=== PATIENT | male | born 1955 | race Caucasian/White ===

== ENCOUNTER 2023-01-06 15:40 | Inpatient (IN) | payer MEDICARE, MEDICAID, SELFPAY ==
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
[2023-01-06 15:56] VITALS: BP 116/72; PULSE 64; RESP 16; TEMP 36.4; O2SAT 98; BMI 38.7
[2023-01-06 16:00] VITALS: BP 118/62; PULSE 61; RESP 16; TEMP 36.6; O2SAT 98
[2023-01-06] MEDS: Furosemide 20 MG Tablet PO (18:11)
[2023-01-06] MEDS: Atorvastatin Calcium 80 MG Tablet PO (21:49)
[2023-01-06] MEDS: tiZANidine HCl 2 MG Tablet PO (21:49)
[2023-01-06] MEDS: traZODone 50 MG Tablet PO (21:49)
[2023-01-07] MEDS: Aspirin E.C. 81 MG Tablet PO (04:56)
[2023-01-07] MEDS: Furosemide 20 MG Tablet PO ×2 (04:56→17:20)
[2023-01-07] MEDS: Levothyroxine 100 MCG Tablet PO (04:56)
[2023-01-07] MEDS: Empagliflozin 25 MG Tablet PO (04:56)
[2023-01-07] MEDS: Oxybutynin 5 MG Tablet 10 MG PO (04:56)
[2023-01-07] MEDS: tiZANidine HCl 2 MG Tablet PO ×3 (04:57→21:22)
[2023-01-07 07:44] LABS: Absolute Lymphocyte Count 0.85 X10^3/uL (0.83-4.51); Absolute Neutrophil Count 2.7 X10^3/uL (2.0-7.7); Basophil# 0.04 X10^3/uL; Basophil% 0.9 % (0-1); Eosinophil# 0.61 X10^3/uL; Eosinophils% 13.2 % (0-5); Hematocrit 42.9 % (40-54); Hemoglobin 13.8 g/dL (13.0-16.5); Lymphocyte # 0.85 X10^3/ul (0.83-4.51); Lymphocyte % 18.4 % (19-41); Mean Corp Hgb Conc 32.2 g/dL (32-36); Mean Corpuscular Hgb 32.9 pg (27.0-32.0); Mean Corpuscular Volume 102.4 fL (80-94); Mean Platelet Vol. 9.8 fl (6.2-12.0); Monocyte# 0.35 X10^3/uL; Monocyte% 7.6 % (0-10); NRBC Flagged by Analyzer 0 % (0-5); Neutrophil # 2.72 X10^3/uL (2.7-7.7); Platelet Count 143 K/mm3 (150-450); RBC Distribution Width CV 14.2 % (11.6-14.6); RBC Distribution Width SD 53.9 fl (35.1-43.9); Red Blood Count 4.19 M/mm3 (4.6-6.2); White Blood Count 4.6 K/mm3 (4.4-11.0)
[2023-01-07 08:06] LABS: Anion Gap 4 (5-15); BUN 48 mg/dL (7-18); BUN/Creat Ratio 25.9 RATIO (10-20); Calcium,Total 8.8 mg/dL (8.5-10.1); Chloride 102 mmol/L (98-107); Creatinine, Serum 1.85 mg/dL (0.70-1.30); EST Glomerular Filtration Rate 39 mL/min (>60); Est Glom Filt Rate - Afr Amer 47 mL/min (>60); Estimated Creatinine Clearance 39.46 ml/min; Glucose 148 mg/dL (74-106); Potassium 3.7 mmol/L (3.5-5.1); Sodium Level 136 mmol/L (136-145)
[2023-01-07] MEDS: Tuberculin,Purif.prot.deriv. 50 TU/ML Vial 0.1 ML ID (08:58)
[2023-01-07 13:54] VITALS: BP 113/87; PULSE 72; RESP 16; TEMP 36.2; O2SAT 96
[2023-01-07] MEDS: Atorvastatin Calcium 80 MG Tablet PO (21:22)
[2023-01-07] MEDS: traZODone 50 MG Tablet PO (21:22)
[2023-01-08] MEDS: Furosemide 20 MG Tablet PO ×2 (05:09→17:28)
[2023-01-08] MEDS: Empagliflozin 25 MG Tablet PO (05:09)
[2023-01-08] MEDS: tiZANidine HCl 2 MG Tablet PO ×3 (05:09→21:31)
[2023-01-08] MEDS: Oxybutynin 5 MG Tablet 10 MG PO (05:09)
[2023-01-08] MEDS: Levothyroxine 100 MCG Tablet PO (05:09)
[2023-01-08 06:36] LABS: Bedside Glucose 149 mg/dL (74-106)
[2023-01-08] MEDS: Aspirin E.C. 81 MG Tablet PO (08:27)
[2023-01-08 10:00] VITALS: PULSE 70; RESP 14; O2SAT 96
--- NOTE | 2023-01-08 11:36 | NURSING ---
Patient noted to have bilateral lower leg seeping, w/ red striations, warm to touch/noted to have minor sensitivity to bilateral heels. ABD pads placed bilaterally, kerlix placed bilaterally and EMILY wraps applied. Heels floated. No wounds to heels noted.
[2023-01-08 13:27] VITALS: BP 112/57; PULSE 69; RESP 16; TEMP 36.3; O2SAT 94
--- NOTE | 2023-01-08 18:19 | PCA ---
FOOD SANITARIAN offered HS care and to help patient get cleaned up for bed. Patient stated that first shift already took care of everything this morning. Im good for tonight Per patient they would rather get cleaned in the mornings
[2023-01-08] MEDS: traZODone 50 MG Tablet PO (21:31)
[2023-01-08] MEDS: Atorvastatin Calcium 80 MG Tablet PO (21:31)
[2023-01-09] MEDS: Levothyroxine 100 MCG Tablet PO (05:55)
[2023-01-09] MEDS: Empagliflozin 25 MG Tablet PO (05:55)
[2023-01-09] MEDS: Furosemide 20 MG Tablet PO ×2 (05:55→17:35)
[2023-01-09] MEDS: tiZANidine HCl 2 MG Tablet PO ×3 (05:55→20:35)
[2023-01-09] MEDS: Oxybutynin 5 MG Tablet 10 MG PO (05:55)
[2023-01-09 06:31] LABS: Bedside Glucose 148 mg/dL (74-106)
[2023-01-09] MEDS: Aspirin E.C. 81 MG Tablet PO (08:01)
--- NOTE | 2023-01-09 11:23 | NURSING ---
Offered Covid booster and provided education about vaccine. Patient refuses this time.
[2023-01-09 13:20] VITALS: BP 102/52; PULSE 73; RESP 16; TEMP 36.3; O2SAT 94
--- NOTE | 2023-01-09 14:51 | NURSING ---
Public Relations Sales Marketing Note; Activity Asset: Margarita Hayes is independent in his choice of daily activities. He prefers to be called Alberto. Alberto has a smartphone and tablet he will plat games on or cards. Alberto stated he is fine with watching tv and playing games on his tablet and is not interested in group activities at this time, will continue to do social visit and encourage small group activities for social well-being.
--- NOTE | 2023-01-09 15:19 | CASEMGMT ---
Social Work Met with patient to complete initial assessment. Introduced self and role. Verified contacts. Discussed code status and MOLST form. Pt confirms full code. MOLST placed in folder. Educated to [facility] insurance with NRD 01/10 and continued stay is not guaranteed with each review. Pt's goal is to return home alone with resuming caregivers 7 days/wk, 3 hrs for AM care and 2 hrs for PM care. Pt states the LIFE INSURANCE SALES is through [employer], and unknown of CM name. LILLIANA spoke with [facility] on Aging and pt is not in the system. SW left message [facility] on Aging for CM. SW to continue to follow. Tiffany Calderon, SANDWICH HAND IT SYSTEMS MANAGER
--- NOTE | 2023-01-09 15:44 | NURSING ---
Patient updated about Covid positive staff. Daughter updated over phone.
--- NOTE | 2023-01-09 15:57 | PHA.CONS_ITS ---
TCU RX Drug Regimen Review Subjective: TCU Admission. 67 YOM admitted to an outside hospital with anasarca, urinary tract infection, pneumonia, complicated by encephalopathy, acute kidney injury, elevated liver function test, hypokalemia. Admitted to TCU with debility for strengthening and rehabilitation. Objective: Allergies Iodinated Contrast Media [iodine contrast] Adverse Reaction (Verified 01/06/23 16:40) Rash Current Medications Generic Name Dose Route Start Last Admin Trade Name Freq PRN Reason Stop Dose Admin Acetaminophen 1,000 mg 01/06/23 16:41 Acetaminophen 500 Mg Tablet PO Q6H PRN PRN Pain Score 1-10 Aspirin 81 mg 01/08/23 08:00 01/09/23 08:01 Aspirin E.C. 81 Mg Tablet PO 81 mg DAILYCM BG Administration Atorvastatin Calcium 80 mg 01/06/23 22:00 01/08/23 21:31 Atorvastatin Calcium 80 Mg Tablet PO 80 mg QHS BG Administration Empagliflozin 25 mg 01/07/23 06:00 01/09/23 05:55 Empagliflozin 25 Mg Tablet PO 25 mg DAILY BG Administration Furosemide 20 mg 01/06/23 18:00 01/09/23 05:55 Furosemide 20 Mg Tablet PO 20 mg BID BG Administration Lactobacillus Acidophilus 1 tablet 01/07/23 06:00 01/09/23 05:55 Lactobacillus Acidophilus PO 1 tablet DAILY BG Administration Levothyroxine Sodium 100 mcg 01/07/23 06:00 01/09/23 05:55 Levothyroxine 100 Mcg Tablet PO 100 mcg DAILY BG Administration Loratadine 10 mg 01/06/23 16:15 Loratadine 10 Mg Tablet PO DAILY PRN PRN Allergies Magnesium Hydroxide 30 ml 01/06/23 16:41 Magnesium Hydroxide 30 Ml Udc PO X1 PRN Constipation Nystatin 1 applic 01/06/23 16:25 Nystatin Ointment TOPICAL BID PRN PRN RASH/TOPICAL IRRITATION Protocol Oxybutynin Chloride 10 mg 01/07/23 06:00 01/09/23 05:55 Oxybutynin 5 Mg Tablet PO 10 mg DAILY BG Administration Senna/Docusate Sodium 1 tablet 01/06/23 16:41 Senna/Docusate Sodium 1 Tablet PO BID PRN PRN Constipation Tizanidine HCl 2 mg 01/06/23 22:00 01/09/23 13:35 Tizanidine Hcl 2 Mg Tablet PO 2 mg Q8 BG Administration Trazodone HCl 50 mg 01/06/23 22:00 01/08/23 21:31 Trazodone 50 Mg Tablet PO 50 mg QHS BG Administration Tuberculin PPD 0.1 ml 01/14/23 10:00 Tuberculin,Purif.Prot.Deriv. 50 Tu/Ml Vial ID 01/14/23 10:01 X1 ONE Problem List (Last Updated 01/06/23 @ 16:[address] Elmer Galvan MD) Suspected deep tissue injury of unknown depth of lower back (Acute) Stage III pressure ulcer of left heel (Acute) Hyperlipidemia (Acute) Coronary artery disease (Acute) Diabetes mellitus (Acute) History of suprapubic catheter (Acute) Neurogenic bladder (Acute) C3 spinal cord injury (Acute) Pneumonia (Acute) Complicated urinary tract infection (Acute) Elevated liver function tests (Acute) Acute kidney injury (Acute) Acute encephalopathy (Acute) Anasarca (Acute) Debility (Acute) Vital Signs Temp Pulse Resp BP Pulse Ox O2 Del Method 97.4 F L 73 16 102/52 L 94 Room Air 01/09/23 13:20 01/09/23 13:20 01/09/23 13:20 01/09/23 13:20 01/09/23 13:20 01/08/23 13:27 Oxygen Delivery Method Room Air Weight: 122.47 kg Body Mass Index (BMI) 38.7 Sodium 136 mmol/L (136-145) 01/07/23 07:05 Potassium 3.7 mmol/L (3.5-5.1) 01/07/23 07:05 Chloride 102 mmol/L (98-107) 01/07/23 07:05 Carbon Dioxide 30.0 mmol/L (21.0-32.0) 01/07/23 07:05 Anion Gap 4 (5-15) L 01/07/23 07:05 BUN 48 mg/dL (7-18) H 01/07/23 07:05 Creatinine 1.85 mg/dL (0.70-1.30) H 01/07/23 07:05 Est GFR (MDRD) Af Amer 47 mL/min (>60) L 01/07/23 07:05 Est GFR (MDRD) Non-Af 39 mL/min (>60) L 01/07/23 07:05 BUN/Creatinine Ratio 25.9 RATIO (10-20) H 01/07/23 07:05 Glucose 148 mg/dL (74-106) H 01/07/23 07:05 Assessment/Plan: 1. Pain: acetaminophen 1000mg PO Q8H PRN pain 1-10. Resident has not had any doses. Please continue to monitor for increased pain and PRN usage. 2. Bowel: senna/docusate 1T PO BID PRN constipation and MOM 30mL PO x1 PRN constipation. Resident has not had any PRN doses and does not have a documented bowel movement. Please continue to monitor for constipation and PRN usage. 3. CAD: aspirin 81mg PO daily. Please continue to monitor for S/S of bleeding and hemoglobin (last 13.8g/dL). 4. Hyperlipidemia: atorvastatin 80mg PO QHS. Please continue to monitor for muscle pain. Resident had elevated LFTs during hospital admission but I can not see lab work from previous admission. Please continue to monitor LFTs to make sure they have improved since resident is on atorvastatin. Please consider ordering a lipid panel as this resident does not have one in the chart. Thanks. 5. Diabetes Mellitus II: empagliflozin 25mg PO daily. Please consider ordering a hemoglobin A1c if clinically appropriate. No A1c in the chart. Thanks. Please continue to monitor glucose (last 148mg/dL), renal function, S/S of UTI (had a UTI during hospital admission) and increased urination. 6. Anasarca: furosemide 20mg PO BID. Please continue to monitor for swelling, renal function and potassium (last 3.7mmol/L). 7. Hypothyroidism: levothyroxine 100mcg PO daily. Per physician note, dose was supposed to be increased to 112 mcg due to TSH of 6.29, but order is in as 100mcg. Please consider increasing dose to 112 mcg if clinically appropriate. Thanks. Please continue to monitor for S/S of hypo/hyperthyroidism. 8. Allergic rhinitis: loratadine 10mg PO daily PRN allergies. Resident has not had a dose. Please continue to monitor for PRN usage and allergies. 9. Muscle spasm: tizanidine 2mg PO Q8. Please continue to monitor for muscle spasms, dry mouth, constipation and drowsiness. 10. GI prophylaxis: lactobacillus acidophilus 1T PO daily. Please continue to monitor. 11. Neurogenic bladder: oxybutynin 10mg PO daily. Please continue to monitor for delirium/dementia (BEERs medication) and anticholinergic side effects. Assessment/Plan for indications treated with psychotropic medications: 1. Insomnia: trazodone 50mg PO QHS. Please consider GDR by 06/2023 if clinically appropriate. Please continue to monitor for excessive drowsiness. Medical chart and medication regimen reviewed. The following medication irregularities or issues were identified: *1. Atorvastatin 80mg PO QHS. Please continue to monitor for muscle pain. Resident had elevated LFTs during hospital admission but I can not see lab work from previous admission. Please continue to monitor LFTs to make sure they have improved since resident is on atorvastatin. Please consider ordering a lipid pa mayuri as this resident does not have one in the chart. Thanks. *2. Empagliflozin 25mg PO daily. Please consider ordering a hemoglobin A1c if clinically appropriate. No A1c in the chart. Thanks. *3. Levothyroxine 100mcg PO daily. Per physician note, dose was supposed to be increased to 112 mcg due to TSH of 6.29, but order is in as 100mcg. Please consider increasing dose to 112 mcg if clinically appropriate. Thanks. *4. Per physician H&P note, resident is supposed to be on cephalexin [facility] for UTI suppression. Please consider adding if clinically appropriate. Thanks. Date of Note:: 01/09/23
[2023-01-09] MEDS: traZODone 50 MG Tablet PO (20:35)
[2023-01-09] MEDS: Atorvastatin Calcium 80 MG Tablet PO (20:35)
[2023-01-10 06:36] LABS: Bedside Glucose 136 mg/dL (74-106)
[2023-01-10] MEDS: Loratadine 10 MG Tablet PO (06:49)
[2023-01-10] MEDS: Oxybutynin 5 MG Tablet 10 MG PO (06:49)
[2023-01-10] MEDS: tiZANidine HCl 2 MG Tablet PO ×3 (06:50→20:19)
[2023-01-10] MEDS: Levothyroxine 100 MCG Tablet PO (06:50)
[2023-01-10] MEDS: Furosemide 20 MG Tablet PO ×2 (06:50→17:20)
[2023-01-10] MEDS: Empagliflozin 25 MG Tablet PO (06:50)
[2023-01-10] MEDS: Aspirin E.C. 81 MG Tablet PO (08:49)
[2023-01-10 10:00] VITALS: PULSE 78; RESP 14; O2SAT 97
[2023-01-10 14:33] VITALS: BP 110/62; PULSE 71; RESP 16; TEMP 36.3; O2SAT 93
[2023-01-10] MEDS: Hydrocortisone 2.5% Crm 1 APPLIC TOPICAL (14:56)
[2023-01-10] MEDS: hydrOXYzine PAM 25 MG Capsule 50 MG PO ×2 (15:00→20:18)
[2023-01-10 16:00] VITALS: BMI 36.9
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
[2023-01-10] MEDS: Glycerin/Hypromellose/PEG400 15 ml Bottle 2 DRP EACH EYE (20:17)
[2023-01-10] MEDS: traZODone 50 MG Tablet PO (20:17)
[2023-01-10] MEDS: Atorvastatin Calcium 80 MG Tablet PO (20:19)
[2023-01-11] MEDS: Oxybutynin 5 MG Tablet 10 MG PO (06:09)
[2023-01-11] MEDS: Levothyroxine 100 MCG Tablet PO (06:10)
[2023-01-11] MEDS: Empagliflozin 25 MG Tablet PO (06:10)
[2023-01-11] MEDS: Furosemide 20 MG Tablet PO ×2 (06:10→17:18)
[2023-01-11] MEDS: tiZANidine HCl 2 MG Tablet PO ×3 (06:10→20:32)
[2023-01-11 06:31] LABS: Bedside Glucose 145 mg/dL (74-106)
[2023-01-11] MEDS: Aspirin E.C. 81 MG Tablet PO (08:00)
--- NOTE | 2023-01-11 09:31 | CASEMGMT ---
Addendum entered by Tiffany Calderon 01/11/23 09:56: SW left message with Shena, who identified herself as MECHANICAL FIELD ENGINEER, requesting a return phone call. Original Note: Social Work IDT met with patient and dtr for care plan meeting. Discussed patient's progress in PT/OT/SN. Educated to [employer] insurance with NRD 01/19 with [facility] 01/22. IDT is recommending 08/05 care at this time. Pt receives AM and PM care at home but is alone during the day and during the night. SW inquired about alt. DC plan and [employer] CM. SW has contacted [facility] on Aging and [facility] on Aging, and pt is not found at any of those agencies. Dtr provided name and number of CM (Shena Moss - [phone]). SW to contact. Pt to think about SNF or home in pt does not return to baseline by DC date. SW offered assistance with DC planning. Will continue to follow. SPENCER Bergeron MECHANICAL FIELD ENGINEER
--- NOTE | 2023-01-11 09:48 | CASEMGMT ---
Social Work BIMS () and PHQ-9 (04/11) completed for MDS assessment. Pt explained positive responses are due to change in medical condition. Tiffany Calderon, ARCHITECTURE MANAGER GLASS BLOWING LATHE OPERATOR
[2023-01-11] MEDS: Magnesium Hydroxide 30 ML UDC PO (10:46)
[2023-01-11 13:39] VITALS: BP 119/59; PULSE 67; RESP 16; TEMP 36.2; O2SAT 94
--- NOTE | 2023-01-11 15:29 | WOUNDNOTE ---
skin photo: right lower leg/foot
--- NOTE | 2023-01-11 15:30 | WOUNDNOTE ---
skin photo: left lower leg/foot
--- NOTE | 2023-01-11 15:31 | WOUNDNOTE ---
was asked to see patient for redness to legs/feet. removed EMILY wraps and dressings. no drainage noted. there are no open areas. some mild redness with some irritation noted. moderately dry skin. washed legs and feet with soap and water. pat dry. applied aloe vesta. will leave FOOD PREP WORKER at this time.
[2023-01-11] MEDS: Senna/Docusate Sodium 1 Tablet PO (18:27)
[2023-01-11 20:30] VITALS: O2SAT 95
[2023-01-11] MEDS: Atorvastatin Calcium 80 MG Tablet PO (20:32)
[2023-01-11] MEDS: traZODone 50 MG Tablet PO (20:33)
[2023-01-11] MEDS: hydrOXYzine PAM 25 MG Capsule 50 MG PO (20:34)
[2023-01-11] MEDS: Hydrocortisone 2.5% Crm 1 APPLIC TOPICAL (20:35)
[2023-01-12 04:54] VITALS: BP 130/66; PULSE 70; RESP 17; O2SAT 96
[2023-01-12] MEDS: Furosemide 20 MG Tablet PO ×2 (04:56→17:53)
[2023-01-12] MEDS: Oxybutynin 5 MG Tablet 10 MG PO (04:56)
[2023-01-12] MEDS: tiZANidine HCl 2 MG Tablet PO ×3 (04:56→20:10)
[2023-01-12] MEDS: Senna/Docusate Sodium 1 Tablet PO ×2 (04:56→17:53)
[2023-01-12] MEDS: Levothyroxine 100 MCG Tablet PO (04:56)
[2023-01-12] MEDS: Polyethylene Glycol 3350 17 GM PACKET PO (04:57)
[2023-01-12 06:26] LABS: Bedside Glucose 141 mg/dL (74-106)
[2023-01-12] MEDS: Empagliflozin 25 MG Tablet PO (06:27)
[2023-01-12] MEDS: Aspirin E.C. 81 MG Tablet PO (07:59)
[2023-01-12] MEDS: Hydrocortisone 2.5% Crm 1 APPLIC TOPICAL (08:00)
--- NOTE | 2023-01-12 12:23 | CASEMGMT ---
Social Work Completed advanced directives with pt. Pt named Ashley magallanes, as HCPOA. Original and copy provided to pt. Copies placed in chart. Tiffany Calderon, RIGHT OF WAY MANAGER LINOLEUM FLOOR INSTALLER
--- NOTE | 2023-01-12 12:38 | MDS.RN ---
Pain interview for STEPHANIE 01/13/23 completed.
[2023-01-12 13:26] VITALS: BP 111/53; PULSE 72; RESP 16; TEMP 36.2; O2SAT 96
[2023-01-12] MEDS: traZODone 50 MG Tablet PO (20:10)
[2023-01-12] MEDS: Atorvastatin Calcium 80 MG Tablet PO (20:10)
[2023-01-12 20:15] VITALS: PULSE 73; RESP 18; O2SAT 96
[2023-01-13] MEDS: Polyethylene Glycol 3350 17 GM PACKET PO (06:03)
[2023-01-13] MEDS: tiZANidine HCl 2 MG Tablet PO ×3 (06:04→19:59)
[2023-01-13] MEDS: Oxybutynin 5 MG Tablet 10 MG PO (06:04)
[2023-01-13] MEDS: Furosemide 20 MG Tablet PO ×2 (06:04→17:43)
[2023-01-13] MEDS: Senna/Docusate Sodium 1 Tablet PO ×2 (06:04→17:44)
[2023-01-13] MEDS: Empagliflozin 25 MG Tablet PO (06:04)
[2023-01-13] MEDS: Levothyroxine 100 MCG Tablet PO (06:04)
[2023-01-13 06:16] LABS: Bedside Glucose 144 mg/dL (74-106)
[2023-01-13] MEDS: Aspirin E.C. 81 MG Tablet PO (07:54)
--- NOTE | 2023-01-13 10:19 | NURSING ---
Aircraft Engine Mechanic Overhaul Note; MDS Complete
[2023-01-13 14:29] VITALS: BP 129/69; PULSE 71; RESP 18; TEMP 36.3; O2SAT 94
[2023-01-13] MEDS: traZODone 50 MG Tablet PO (19:59)
[2023-01-13] MEDS: Atorvastatin Calcium 80 MG Tablet PO (19:59)
[2023-01-13 20:00] VITALS: PULSE 75; RESP 16; O2SAT 93
[2023-01-14] MEDS: Polyethylene Glycol 3350 17 GM PACKET PO (04:49)
[2023-01-14] MEDS: Oxybutynin 5 MG Tablet 10 MG PO (04:50)
[2023-01-14] MEDS: Senna/Docusate Sodium 1 Tablet PO ×2 (04:50→17:30)
[2023-01-14] MEDS: tiZANidine HCl 2 MG Tablet PO ×3 (04:50→21:55)
[2023-01-14] MEDS: Levothyroxine 100 MCG Tablet PO (04:50)
[2023-01-14] MEDS: Furosemide 20 MG Tablet PO ×2 (04:51→17:30)
[2023-01-14] MEDS: Empagliflozin 25 MG Tablet PO (04:51)
[2023-01-14 06:20] LABS: Bedside Glucose 164 mg/dL (74-106)
[2023-01-14 07:18] LABS: Absolute Lymphocyte Count 1.09 X10^3/uL (0.83-4.51); Absolute Neutrophil Count 2.6 X10^3/uL (2.0-7.7); Basophil# 0.03 X10^3/uL; Basophil% 0.7 % (0-1); Eosinophils% 10.8 % (0-5); Hematocrit 41.6 % (40-54); Hemoglobin 13.8 g/dL (13.0-16.5); Lymphocyte # 1.09 X10^3/ul (0.83-4.51); Lymphocyte % 23.6 % (19-41); Mean Corp Hgb Conc 33.2 g/dL (32-36); Mean Corpuscular Hgb 33.6 pg (27.0-32.0); Mean Corpuscular Volume 101.2 fL (80-94); Mean Platelet Vol. 9.7 fl (6.2-12.0); Monocyte# 0.39 X10^3/uL; Monocyte% 8.5 % (0-10); NRBC Flagged by Analyzer 0 % (0-5); Neutrophil # 2.56 X10^3/uL (2.7-7.7); Neutrophil % 55.5 % (47-70); Platelet Count 124 K/mm3 (150-450); RBC Distribution Width SD 51.5 fl (35.1-43.9); Red Blood Count 4.11 M/mm3 (4.6-6.2); White Blood Count 4.6 K/mm3 (4.4-11.0)
[2023-01-14 07:43] LABS: Anion Gap 5 (5-15); BUN 47 mg/dL (7-18); BUN/Creat Ratio 26.4 RATIO (10-20); Calcium,Total 8.5 mg/dL (8.5-10.1); Chloride 107 mmol/L (98-107); Creatinine, Serum 1.78 mg/dL (0.70-1.30); EST Glomerular Filtration Rate 41 mL/min (>60); Est Glom Filt Rate - Afr Amer 49 mL/min (>60); Estimated Creatinine Clearance 41.01 ml/min; Glucose 164 mg/dL (74-106); Sodium Level 138 mmol/L (136-145)
[2023-01-14] MEDS: Aspirin E.C. 81 MG Tablet PO (08:48)
[2023-01-14] MEDS: Tuberculin,Purif.prot.deriv. 50 TU/ML Vial 0.1 ML ID (09:27)
[2023-01-14] MEDS: Hydrocortisone 2.5% Crm 1 APPLIC TOPICAL (09:43)
[2023-01-14 10:00] VITALS: PULSE 70; O2SAT 90
[2023-01-14 14:37] VITALS: BP 109/56; PULSE 64; RESP 18; TEMP 36.6; O2SAT 94
[2023-01-14] MEDS: traZODone 50 MG Tablet PO (21:55)
[2023-01-14] MEDS: Atorvastatin Calcium 80 MG Tablet PO (21:55)
[2023-01-15] MEDS: Furosemide 20 MG Tablet PO ×2 (05:44→17:02)
[2023-01-15] MEDS: Senna/Docusate Sodium 1 Tablet PO ×2 (05:45→17:02)
[2023-01-15] MEDS: Levothyroxine 100 MCG Tablet PO (05:45)
[2023-01-15] MEDS: tiZANidine HCl 2 MG Tablet PO ×3 (05:45→21:38)
[2023-01-15] MEDS: Polyethylene Glycol 3350 17 GM PACKET PO (05:45)
[2023-01-15 05:56] VITALS: BP 110/56; PULSE 61; RESP 16
[2023-01-15 06:20] LABS: Bedside Glucose 133 mg/dL (74-106)
[2023-01-15] MEDS: Aspirin E.C. 81 MG Tablet PO (07:37)
[2023-01-15] MEDS: Empagliflozin 25 MG Tablet PO (07:38)
[2023-01-15] MEDS: Oxybutynin 5 MG Tablet 10 MG PO (07:38)
--- NOTE | 2023-01-15 10:51 | NURSING ---
MEPILEX CHANGED TO PT BUTT. PT OWN ATTENDS WAS DIRTY[NOT STOOL] AND STRONG SMELL. ASKED PT WHEN HE LAST CHANGED THEM,PT STATED A FEW DAYS AGO. STATED AND EDUCATED PT THAT HE NEEDS TO CHANGE HIS ATTENDS EVERY DAY DIRTY OR NOT SO HE DOES NOT GET ANY INFECTIONS OR OTHER PROBLEMS FOR NOT BEING CLEAN. PT STATED HE UNDER STOOD. PT BOTTOM CLEANED AND NEW ATTENDS APPLIED. RN AWARE
[2023-01-15 15:25] VITALS: BP 129/55; PULSE 62; RESP 16; TEMP 36.3; O2SAT 96
[2023-01-15 19:40] VITALS: PULSE 68; RESP 16; O2SAT 93
[2023-01-15] MEDS: Atorvastatin Calcium 80 MG Tablet PO (21:38)
[2023-01-15] MEDS: traZODone 50 MG Tablet PO (21:38)
[2023-01-16] MEDS: tiZANidine HCl 2 MG Tablet PO ×3 (05:42→19:53)
[2023-01-16] MEDS: Furosemide 20 MG Tablet PO ×2 (05:42→18:17)
[2023-01-16] MEDS: Levothyroxine 100 MCG Tablet PO (05:42)
[2023-01-16] MEDS: Senna/Docusate Sodium 1 Tablet PO ×2 (05:42→18:17)
[2023-01-16 06:21] LABS: Bedside Glucose 135 mg/dL (74-106)
[2023-01-16] MEDS: Aspirin E.C. 81 MG Tablet PO (07:47)
[2023-01-16] MEDS: Oxybutynin 5 MG Tablet 10 MG PO (07:47)
[2023-01-16] MEDS: Empagliflozin 25 MG Tablet PO (07:48)
[2023-01-16 09:14] VITALS: PULSE 73; RESP 16; O2SAT 91
[2023-01-16 14:30] VITALS: BP 108/66; PULSE 69; RESP 16; TEMP 36.1; O2SAT 91
--- NOTE | 2023-01-16 15:47 | CASEMGMT ---
Social Work SW recevied message from Whitney, pt's Passport Drum Handler [phone]. Pt receives home health aids through [facility] 7 days a week, 3 hours in the AM and 2 hours in the evening. Pt has Skilled home health care through [facility]. Wellness monitoring each Monday and PT Tuesdays and . Yamilet SAAVEDRA
[2023-01-16] MEDS: traZODone 50 MG Tablet PO (19:53)
[2023-01-16] MEDS: Atorvastatin Calcium 80 MG Tablet PO (19:53)
[2023-01-17] MEDS: Furosemide 20 MG Tablet PO ×2 (05:14→17:03)
[2023-01-17] MEDS: Levothyroxine 100 MCG Tablet PO (05:14)
[2023-01-17] MEDS: Senna/Docusate Sodium 1 Tablet PO ×2 (05:14→17:02)
[2023-01-17] MEDS: tiZANidine HCl 2 MG Tablet PO ×3 (05:14→19:51)
[2023-01-17] MEDS: Polyethylene Glycol 3350 17 GM PACKET PO (05:14)
[2023-01-17 06:41] LABS: Bedside Glucose 156 mg/dL (74-106)
[2023-01-17] MEDS: Aspirin E.C. 81 MG Tablet PO (09:28)
[2023-01-17] MEDS: Empagliflozin 25 MG Tablet PO (09:28)
[2023-01-17] MEDS: Oxybutynin 5 MG Tablet 10 MG PO (09:28)
[2023-01-17 10:02] VITALS: BMI 37.3
[2023-01-17 13:32] VITALS: BP 119/57; PULSE 69; RESP 16; TEMP 36; O2SAT 95
--- NOTE | 2023-01-17 14:09 | WOUNDNOTE ---
In to reassess bilateral lower legs and feet. edema and redness much improved. there is less irritation noted today. patient denies pain. will continue to monitor. no open areas noted.
[2023-01-17] MEDS: Atorvastatin Calcium 80 MG Tablet PO (19:51)
[2023-01-17] MEDS: traZODone 50 MG Tablet PO (19:52)
[2023-01-17 19:54] VITALS: PULSE 80; RESP 16; O2SAT 98
[2023-01-18 06:25] LABS: Bedside Glucose 139 mg/dL (74-106)
[2023-01-18 06:30] VITALS: BP 115/62; PULSE 69
[2023-01-18] MEDS: tiZANidine HCl 2 MG Tablet PO ×3 (06:34→20:06)
[2023-01-18] MEDS: Polyethylene Glycol 3350 17 GM PACKET PO (06:34)
[2023-01-18] MEDS: Furosemide 20 MG Tablet PO ×2 (06:34→17:08)
[2023-01-18] MEDS: Levothyroxine 100 MCG Tablet PO (06:34)
[2023-01-18] MEDS: Senna/Docusate Sodium 1 Tablet PO ×2 (06:34→17:08)
[2023-01-18] MEDS: Empagliflozin 25 MG Tablet PO (08:31)
[2023-01-18] MEDS: Aspirin E.C. 81 MG Tablet PO (08:31)
[2023-01-18] MEDS: Oxybutynin 5 MG Tablet 10 MG PO (08:31)
--- NOTE | 2023-01-18 10:41 | PCA ---
Patient was scheduled for a shower today, had PT first, then OT. Went in @ 10:20 & asked him if he was ready for his shower, Alberto said he was to tired to take one. I said, ok, then we will schedule it morning @ 7am. He said that would be fine.
[2023-01-18 10:45] VITALS: PULSE 73; RESP 18; O2SAT 93
[2023-01-18 13:51] VITALS: BP 115/57; PULSE 73; RESP 14; TEMP 36.6; O2SAT 94
--- NOTE | 2023-01-18 14:05 | MDS.RN ---
Information for the mds was obtained from review of the clinical record, interview of resident, staff, and direct observation of resident's care.
[2023-01-18] MEDS: Atorvastatin Calcium 80 MG Tablet PO (20:07)
[2023-01-18] MEDS: traZODone 50 MG Tablet PO (20:07)
[2023-01-19] MEDS: Polyethylene Glycol 3350 17 GM PACKET PO (05:05)
[2023-01-19] MEDS: Senna/Docusate Sodium 1 Tablet PO ×2 (05:05→17:13)
[2023-01-19] MEDS: tiZANidine HCl 2 MG Tablet PO ×3 (05:05→22:33)
[2023-01-19] MEDS: Levothyroxine 100 MCG Tablet PO (05:05)
[2023-01-19] MEDS: Furosemide 20 MG Tablet PO ×2 (05:05→17:13)
[2023-01-19 06:31] LABS: Bedside Glucose 153 mg/dL (74-106)
[2023-01-19] MEDS: Hydrocortisone 2.5% Crm 1 APPLIC TOPICAL (07:52)
[2023-01-19] MEDS: Empagliflozin 25 MG Tablet PO (07:53)
[2023-01-19] MEDS: Aspirin E.C. 81 MG Tablet PO (07:53)
[2023-01-19] MEDS: Oxybutynin 5 MG Tablet 10 MG PO (07:53)
--- NOTE | 2023-01-19 11:10 | NURSING ---
PT DOES NOT KNOW FOR SURE IF HE HAS HAD A PNEUMONIA SHOT AND IF HE DID IT MIGHT HAVE BEEN IN [place], [place]. DAUGHTER IN ROOM AND STATED SHE WOULD GET A HOLD OF ALL THE OFFICES THAT HE WAS AT AND MEDICAL RECORDS FOR HIM TO SEE IF HE HAS HAD ANY SHOTS AND LET US KNOW. THIS NURSE WENT BACK LATER TO SEE IF DAUGHTER FOUND ANY THING OUT AND SHE STATED SHE LEFT MESSAGES AND WANTING TO HEAR BACK.
[2023-01-19 14:08] VITALS: BP 118/62; PULSE 69; RESP 18; TEMP 36.3; O2SAT 99
[2023-01-19 17:06] VITALS: PULSE 56; RESP 18; O2SAT 94
[2023-01-19] MEDS: Atorvastatin Calcium 80 MG Tablet PO (22:33)
[2023-01-19] MEDS: traZODone 50 MG Tablet PO (22:33)
[2023-01-20 06:40] LABS: Bedside Glucose 133 mg/dL (74-106)
[2023-01-20] MEDS: Levothyroxine 100 MCG Tablet PO (06:54)
[2023-01-20] MEDS: Furosemide 20 MG Tablet PO ×2 (06:54→17:06)
[2023-01-20] MEDS: Magnesium Hydroxide 30 ML UDC PO ×2 (06:54→06:58)
[2023-01-20] MEDS: Polyethylene Glycol 3350 17 GM PACKET PO (06:55)
[2023-01-20] MEDS: Senna/Docusate Sodium 1 Tablet PO (06:55)
[2023-01-20] MEDS: tiZANidine HCl 2 MG Tablet PO ×3 (07:01→20:23)
[2023-01-20] MEDS: Oxybutynin 5 MG Tablet 10 MG PO (08:39)
[2023-01-20] MEDS: Aspirin E.C. 81 MG Tablet PO (08:40)
[2023-01-20] MEDS: Empagliflozin 25 MG Tablet PO (08:40)
[2023-01-20 10:00] VITALS: PULSE 74; RESP 18; O2SAT 90
[2023-01-20 15:03] VITALS: BP 121/52; PULSE 78; RESP 16; TEMP 36.7; O2SAT 94
[2023-01-20] MEDS: Atorvastatin Calcium 80 MG Tablet PO (20:24)
[2023-01-20] MEDS: traZODone 50 MG Tablet PO (20:24)
[2023-01-21] MEDS: Polyethylene Glycol 3350 17 GM PACKET PO (05:40)
[2023-01-21] MEDS: Furosemide 20 MG Tablet PO ×2 (05:41→18:16)
[2023-01-21] MEDS: Senna/Docusate Sodium 1 Tablet PO ×2 (05:41→18:16)
[2023-01-21] MEDS: Levothyroxine 100 MCG Tablet PO (05:41)
[2023-01-21] MEDS: tiZANidine HCl 2 MG Tablet PO ×3 (05:41→21:24)
[2023-01-21 06:31] LABS: Bedside Glucose 150 mg/dL (74-106)
[2023-01-21 07:28] LABS: Absolute Neutrophil Count 2.6 X10^3/uL (2.0-7.7); Basophil# 0.04 X10^3/uL; Basophil% 0.8 % (0-1); Eosinophil# 0.56 X10^3/uL; Eosinophils% 11.6 % (0-5); Hematocrit 43.8 % (40-54); Hemoglobin 14.8 g/dL (13.0-16.5); Lymphocyte % 26.9 % (19-41); Mean Corp Hgb Conc 33.8 g/dL (32-36); Mean Corpuscular Hgb 33.5 pg (27.0-32.0); Mean Corpuscular Volume 99.1 fL (80-94); Mean Platelet Vol. 10.1 fl (6.2-12.0); Monocyte# 0.33 X10^3/uL; Monocyte% 6.8 % (0-10); NRBC Flagged by Analyzer 0 % (0-5); Neutrophil # 2.56 X10^3/uL (2.7-7.7); Neutrophil % 53.1 % (47-70); Platelet Count 122 K/mm3 (150-450); RBC Distribution Width CV 13.4 % (11.6-14.6); RBC Distribution Width SD 48.7 fl (35.1-43.9); Red Blood Count 4.42 M/mm3 (4.6-6.2); White Blood Count 4.8 K/mm3 (4.4-11.0)
[2023-01-21 07:55] LABS: Anion Gap 9 (5-15); BUN 39 mg/dL (7-18); BUN/Creat Ratio 22.8 RATIO (10-20); Calcium,Total 8.4 mg/dL (8.5-10.1); Chloride 108 mmol/L (98-107); Creatinine, Serum 1.71 mg/dL (0.70-1.30); EST Glomerular Filtration Rate 43 mL/min (>60); Est Glom Filt Rate - Afr Amer 51 mL/min (>60); Estimated Creatinine Clearance 42.69 ml/min; Glucose 146 mg/dL (74-106); Potassium 3.9 mmol/L (3.5-5.1); Sodium Level 139 mmol/L (136-145)
[2023-01-21] MEDS: Oxybutynin 5 MG Tablet 10 MG PO (09:26)
[2023-01-21] MEDS: Aspirin E.C. 81 MG Tablet PO (09:26)
[2023-01-21] MEDS: Empagliflozin 25 MG Tablet PO (09:26)
[2023-01-21 14:35] VITALS: BP 120/51; PULSE 68; RESP 16; TEMP 36.4; O2SAT 93
[2023-01-21] MEDS: traZODone 50 MG Tablet PO (21:23)
[2023-01-21] MEDS: Atorvastatin Calcium 80 MG Tablet PO (21:23)
[2023-01-21 22:00] VITALS: O2SAT 95
[2023-01-22] MEDS: Senna/Docusate Sodium 1 Tablet PO ×2 (05:22→17:38)
[2023-01-22] MEDS: Levothyroxine 100 MCG Tablet PO (05:22)
[2023-01-22] MEDS: Furosemide 20 MG Tablet PO ×2 (05:22→17:38)
[2023-01-22] MEDS: tiZANidine HCl 2 MG Tablet PO ×3 (05:23→21:18)
[2023-01-22] MEDS: Polyethylene Glycol 3350 17 GM PACKET PO (05:23)
[2023-01-22 06:21] LABS: Bedside Glucose 128 mg/dL (74-106)
[2023-01-22] MEDS: Oxybutynin 5 MG Tablet 10 MG PO (08:00)
[2023-01-22] MEDS: Empagliflozin 25 MG Tablet PO (08:00)
[2023-01-22] MEDS: Aspirin E.C. 81 MG Tablet PO (08:01)
[2023-01-22 09:58] VITALS: PULSE 93; RESP 18; O2SAT 93
[2023-01-22 14:29] VITALS: BP 107/60; PULSE 61; RESP 16; TEMP 36.2; O2SAT 93
[2023-01-22] MEDS: Atorvastatin Calcium 80 MG Tablet PO (21:18)
[2023-01-22] MEDS: traZODone 50 MG Tablet PO (21:18)
[2023-01-23] MEDS: tiZANidine HCl 2 MG Tablet PO ×3 (05:58→20:44)
[2023-01-23] MEDS: Polyethylene Glycol 3350 17 GM PACKET PO (05:58)
[2023-01-23] MEDS: Furosemide 20 MG Tablet PO ×2 (05:58→17:16)
[2023-01-23] MEDS: Senna/Docusate Sodium 1 Tablet PO ×2 (05:58→17:16)
[2023-01-23] MEDS: Levothyroxine 100 MCG Tablet PO (05:58)
[2023-01-23] MEDS: Magnesium Hydroxide 30 ML UDC PO (05:58)
[2023-01-23 06:41] LABS: Bedside Glucose 165 mg/dL (74-106)
[2023-01-23] MEDS: Empagliflozin 25 MG Tablet PO (08:11)
[2023-01-23] MEDS: Aspirin E.C. 81 MG Tablet PO (08:11)
[2023-01-23] MEDS: Oxybutynin 5 MG Tablet 10 MG PO (08:11)
[2023-01-23 14:34] VITALS: BP 120/57; PULSE 67; RESP 15; TEMP 36.8; O2SAT 97
[2023-01-23] MEDS: traZODone 50 MG Tablet PO (20:45)
[2023-01-23] MEDS: Atorvastatin Calcium 80 MG Tablet PO (20:46)
[2023-01-23] MEDS: Glycerin/Hypromellose/PEG400 15 ml Bottle 2 DRP EACH EYE (20:46)
[2023-01-23] MEDS: Loratadine 10 MG Tablet PO (20:50)
[2023-01-23 21:08] VITALS: O2SAT 95
[2023-01-24] MEDS: Polyethylene Glycol 3350 17 GM PACKET PO (05:43)
[2023-01-24] MEDS: Senna/Docusate Sodium 1 Tablet PO ×2 (05:44→17:19)
[2023-01-24] MEDS: Furosemide 20 MG Tablet PO ×2 (05:44→17:18)
[2023-01-24] MEDS: Levothyroxine 100 MCG Tablet PO (05:45)
[2023-01-24] MEDS: tiZANidine HCl 2 MG Tablet PO ×3 (05:45→21:11)
[2023-01-24 06:51] LABS: Bedside Glucose 151 mg/dL (74-106)
[2023-01-24] MEDS: Empagliflozin 25 MG Tablet PO (07:58)
[2023-01-24] MEDS: Oxybutynin 5 MG Tablet 10 MG PO (07:59)
[2023-01-24] MEDS: Aspirin E.C. 81 MG Tablet PO (07:59)
[2023-01-24] MEDS: Hydrocortisone 2.5% Crm 1 APPLIC TOPICAL (09:33)
[2023-01-24 10:00] VITALS: PULSE 76; RESP 18; O2SAT 97
[2023-01-24 13:44] VITALS: BP 120/68; PULSE 77; RESP 18; TEMP 36.4; O2SAT 96
--- NOTE | 2023-01-24 14:28 | CASEMGMT ---
Social Work Insurance issued LCD 01/26, DC 01/27. SW spoke with pt about DC. Pt would like to DC sooner, but SW advised that pt needs to have janitor cleaner in place prior to DC home. SW left message with CM to inquire about when INSTRUCTIONAL AIDE can start. Pt expressed understanding and will remain until INSTRUCTIONAL AIDE are in place. Pt used [facility] prior for PT/OT/SN. SW sent referral via [employer] to [facility] to resume services. No DME needs. Plan: DC home BY 01/27, or earlier, [facility] PT/OT/SN SPENCER Bergeron
[2023-01-24 15:01] VITALS: BMI 37.5
--- NOTE | 2023-01-24 20:25 | DS.PCM_ITS ---
Providers Date of Admission: 01/06/23 Consultations 01/06/23 17:22 Consult: Onc/Wound/manager of international Routine Comment: Reason for Consult:: bilat lower extremities and heels Reason For Visit: ACUTE KIDNEY INJURY Diagnosis Discharge Diagnosis (1) Debility: Status: Acute Code(s): R53.81 - Other malaise (2) Anasarca: Status: Acute Code(s): R60.1 - Generalized edema (3) Acute encephalopathy: Status: Acute Code(s): G93.40 - Encephalopathy, unspecified (4) Acute kidney injury: Status: Acute Code(s): N17.9 - Acute kidney failure, unspecified (5) Elevated liver function tests: Status: Acute Code(s): R79.89 - Other specified abnormal findings of blood chemistry (6) Complicated urinary tract infection: Status: Acute Code(s): N39.0 - Urinary tract infection, site not specified (7) Pneumonia: Status: Acute Code(s): J18.9 - Pneumonia, unspecified organism (8) C3 spinal cord injury: Status: Acute Code(s): S14.103A - Unspecified injury at C3 level of cervical spinal cord, initial e ncounter (9) Neurogenic bladder: Status: Acute Code(s): N31.9 - Neuromuscular dysfunction of bladder, unspecified (10) History of suprapubic catheter: Status: Acute Code(s): Z98.890 - Other specified postprocedural states (11) Diabetes mellitus: Status: Acute Code(s): E11.9 - Type 2 diabetes mellitus without complications (12) Coronary artery disease: Status: Acute Code(s): I25.10 - Atherosclerotic heart disease of [place] coronary artery without angina pectoris (13) Hyperlipidemia: Status: Acute Code(s): E78.5 - Hyperlipidemia, unspecified (14) Stage III pressure ulcer of left heel: Status: Acute Code(s): L89.623 - Pressure ulcer of left heel, stage 3 (15) Suspected deep tissue injury of unknown depth of lower back: Status: Acute Code(s): R68.89 - Other general symptoms and signs Plan 67 year old male with below past medical history hospitalized for anasarca, urinary tract infection, pneumonia, complicated by encephalopathy, acute kidney injury, elevated liver function test, hypokalemia, admitted to TCU with debility, here for rehabilitation, strengthening, prior to discharge home alone. * Debility - PT/OT. * Pain - Tylenol 1000mg q6h prn pain (1-10). * Bowel - senna/colace 1 tablet bid prn, MOM 30ml po x 1 prn. * Adult immunization - Administer pneumonia vaccine, covid19 vaccine, flu vaccine as appropriate. * DVT prophylaxis - Hold, monitor. * Coronary artery disease - aspirin 81mg daily. * Hyperlipidemia - Atorvastatin 80mg qhs. * Diabetes Mellitus II - Jardiance 25mg daily, monitor blood glucose. * Anasarca - Furosemide 20mg bid. * Hypothyroidism - Levothyroxine 100mcg daily. * Allergic rhinitis - Loratadine 10mg daily prn. * Muscle spasm - Tizanidine 2mg q8h. * Insomnia - Trazodone 50mg qhs. * GI prophylaxis - Lactobacillus 1 tablet daily. Medications at Discharge Home Medications aspirin 81 mg tablet,delayed release 81 mg PO DAILY Heart 01/06/23 atorvastatin 80 mg tablet 80 mg PO DAILY Cholesterol 01/06/23 empagliflozin 25 mg tablet (Jardiance) 25 mg PO DAILY DM 01/06/23 levothyroxine 100 mcg tablet 100 mcg PO DAILY Thyroid 01/06/23 loratadine 10 mg tablet 10 mg PO DAILY PRN Allergies 01/06/23 tizanidine 2 mg tablet 2 mg PO Q8 Muscle Spasm 01/06/23 trazodone 50 mg tablet 50 mg PO QHS sleep 01/06/23 furosemide 20 mg tablet 20 mg PO BID 30 days #60 tabs 01/24/23 oxybutynin chloride 5 mg tablet 10 mg PO DAILY@0800 30 days #60 tabs 01/24/23 peg [id number] 1 %-0.2 %-0.2 % eye drops (Artificial Tears ([id number])) 2 drp EACH EYE Q1H PRN DRY EYES #0 mL 01/24/23 polyethylene glycol 3350 17 gram oral powder packet 17 g PO DAILY 30 days #30 ea 01/24/23 sennosides 8.6 mg-docusate sodium 50 mg tablet (Stool Softener-Stimulant Laxati ve) 1 tab PO BID 30 days #60 tabs 01/24/23 Hospital Course Operations None Procedures None Summary of Care Provided Minutes Spent on Discharge: 35 Hospital Course: 67 year old male with below past medical history hospitalized for anasarca, urinary tract infection, pneumonia, complicated by encephalopathy, acute kidney injury, elevated liver function test, hypokalemia, admitted to TCU with debility, here for rehabilitation, strengthening, prior to discharge home alone. Discharge home alone 01/27/2023 or earlier, [facility] PT/OT/SN. Physical Exam Const alert General Appearance: cooperative HEENT normocephalic Eyes PERRL and EOMs intact bilaterally Neck supple, no JVD and no carotid bruits Resp normal respiratory effort, normal air movement and clear to auscultation bilaterally Cardio regular rate and regular rhythm GI normal to inspection, nondistended, normoactive bowel sounds, non-tender and non-distended Bladder / Kidney Exam: catheter in place urethral Extremity normal capillary refill General Extremity: Negative for edema Skin no rashes or lesions noted General Skin Exam: no breakdown Neuro Neuro Narrative: Incomplete quadraplegia. Psych affect normal Appearance: appropriate Weight / BMI Weight Weight: 118.614 kg Body Mass Index (BMI) 37.5 ABG / Lab / Microbiology Data Result Diagrams: 01/21/23 07:10 01/21/23 07:10 Laboratory: Laboratory Results - last 24 hr 01/24/23 06:29: POC Glucose 151 H Microbiology: Microbiology 01/24/23 06:00 Nasal Secretion SARS-CoV-2 Antigen (Rapid) - Final 01/17/23 05:15 Nasal Secretion SARS-CoV-2 Antigen (Rapid) - Final 01/10/23 06:56 Nasal Secretion SARS-CoV-2 Antigen (Rapid) - Final 01/08/23 Unknown Nasal Secretion SARS-CoV-2 Antigen (Rapid) - Final 01/07/23 09:27 Nasal Secretion SARS-CoV-2 Antigen (Rapid) - Final D/C Instructions Discharge Diet: No restrictions Discharge Activity: Return to Normal Activity, May Shower and Use Walker Weight Bearing Status: Weight bearing as tolerated Call your doctor if you observe: Fever of 101 or Higher, Inability to urinate, Inability to have a bowel movement, Shortness of breath, Dizziness, Fainting spells, Swelling in the ankles, Chest pain and Uncontrolled pain Additional Instructions: Discharge home alone 01/27/2023 or earlier, [facility] PT/OT/SN. Please Follow Up With: Tameka Draper MD When: As scheduled. Meaningful Use Info Meaningful Use Diagnoses (Choose all that apply): None applicable Discharge Plan Admission Admit Date/Time: 01/06/23 15:40 Primary Reason for Your Visit: Debility. Attending Provider: Elmer Galvan Chi Instructions Additional Instructions / Restrictions: Discharge home alone 01/27/2023 or earlier, [facility] PT/OT/SN. Discharge Orders/Prescriptions Prescriptions: New polyethylene glycol 3350 17 gram Powder In Packet 17 g PO DAILY 30 Days Qty: 30 0RF furosemide 20 mg Tablet 20 mg PO BID 30 Days Qty: 60 0RF oxybutynin chloride 5 mg Tablet 10 mg PO DAILY@0800 30 Days Qty: 60 0RF Artificial Tears([id number]) 1-0.2-0.2 % Drops 2 drp EACH EYE Q1H PRN (Reason: DRY EYES) Qty: 0 0RF sennosides-docusate sodium [Stool Softener-Stimulant Laxat] 8.6-50 mg Tablet 1 tab PO BID 30 Days Qty: 60 0RF Continued atorvastatin 80 mg tablet 80 mg PO DAILY Label Comments: TAKE 1 TABLET BY MOUTH ONCE DAILY tizanidine 2 mg tablet 2 mg PO Q8 Label Comments: TAKE 1 TABLET BY MOUTH THREE TIMES DAILY trazodone 50 mg tablet 50 mg PO QHS levothyroxine 100 mcg tablet 100 mcg PO DAILY Label Comments: TAKE 1 TABLET BY MOUTH ONCE DAILY aspirin 81 mg Tablet,Delayed Release (Dr/Ec) 81 mg PO DAILY loratadine 10 mg Tablet 10 mg PO DAILY PRN (Reason: Allergies) Jardiance 25 mg tablet 25 mg PO DAILY Label Comments: TAKE 1 TABLET BY MOUTH ONCE DAILY Discontinued oxybutynin chloride 10 mg tablet extended release 24hr 10 mg PO DAILY furosemide 20 mg tablet 20 mg PO BID pioglitazone 30 mg tablet 30 mg PO DAILY Label Comments: TAKE 1 TABLET BY MOUTH ONCE DAILY nystatin 100,000 unit/gram Cream 1 applic TOPICAL BID linaclotide 145 mcg Capsule 145 mcg PO DAILY Acidophilus Tablet 1,000 mmu cells PO DAILY Disposition Disposition (needs filled in before D/C Order can be placed): Home Health Service
[2023-01-24 20:31] VITALS: BP 107/68; PULSE 61; RESP 16; TEMP 35.9; O2SAT 94
[2023-01-24] MEDS: Atorvastatin Calcium 80 MG Tablet PO (21:11)
[2023-01-24] MEDS: traZODone 50 MG Tablet PO (21:11)
[2023-01-25] MEDS: Polyethylene Glycol 3350 17 GM PACKET PO (05:14)
[2023-01-25] MEDS: tiZANidine HCl 2 MG Tablet PO (05:15)
[2023-01-25] MEDS: Senna/Docusate Sodium 1 Tablet PO (05:15)
[2023-01-25] MEDS: Levothyroxine 100 MCG Tablet PO (05:15)
[2023-01-25] MEDS: Furosemide 20 MG Tablet PO (05:16)
[2023-01-25 06:50] LABS: Bedside Glucose 243 mg/dL (74-106)
[2023-01-25] MEDS: Aspirin E.C. 81 MG Tablet PO (08:15)
[2023-01-25] MEDS: Oxybutynin 5 MG Tablet 10 MG PO (08:16)
[2023-01-25] MEDS: Empagliflozin 25 MG Tablet PO (08:16)
--- NOTE | 2023-01-25 14:14 | CASEMGMT ---
Social Work BIMS () and PHQ-9 (12/12) completed for MDS assessment. Tiffany Calderon MSW SENIOR CONSTRUCTION ESTIMATOR
== END 2023-01-25 11:10 | disposition home health service (06) | DRG 193 ==
PROVIDERS: Admitting Provider Family Medicine Geriatric Medicine; Visit Provider Family Medicine Geriatric Medicine
DX: J18.9 Pneumonia, unspecified organism (principal); L89.623 Pressure ulcer of left heel, stage 3; L89.143 Pressure ulcer of left lower back, stage 3; G93.40 Encephalopathy, unspecified; N39.0 Urinary tract infection, site not specified; E11.9 Type 2 diabetes mellitus without complications; E78.5 Hyperlipidemia, unspecified; I25.10 Atherosclerotic heart disease of native coronary artery without angina pectoris; E03.9 Hypothyroidism, unspecified; Z79.84 Long term (current) use of oral hypoglycemic drugs; N31.9 Neuromuscular dysfunction of bladder, unspecified; R60.1 Generalized edema; Z79.899 Other long term (current) drug therapy; Z79.82 Long term (current) use of aspirin; G47.00 Insomnia, unspecified; T83.59 Infection and inflammatory reaction due to prosthetic device, implant and graft in urinary system; Y73.8 Miscellaneous gastroenterology and urology devices associated with adverse incidents, not elsewhere classified
CPT/HCPCS: 36415; 80048; 82962; 85025; 87426; 87811; 97110; 97112; 97161; 97166; 97530; 97535; 97802; 99406